=== PATIENT | female | born 1985 | race Hispanic/Latino ===

== ENCOUNTER 2020-09-25 05:26 | Observation (INO) | payer OTHER, SELFPAY ==
[2020-09-25 06:07] LABS: Bilirubin Negative (Negative); Blood, Urine Small (Negative); Glucose, Urine (Dipstick) Negative (Negative); Ketone, Urine Negative (Negative); Leukocyte Negative (Negative); Nitrite Negative (Negative); Protein, Urine (Dipstick) Negative (Neg-Trace); Urobilinogen 0.2 mg/dL (Less than 2)
[2020-09-25 06:09] LABS: Clarity Clear (Clear); RBC/HPF None Seen HPF (0-3); Specific Gravity, Urine 1.004 (1.002-1.036)
[2020-09-25 06:19] LABS: #Eosinphils 0.1 thou/uL (0.0-0.7); #Lymphocytes 1.3 thou/uL (1.20-3.40); #Monocytes 0.5 thou/uL (0.11-0.59); #Neutrophils 11.7 thou/uL (1.40-6.50); %Basophils 0.1 % (0.0-1.0); %Eosinophils 0.8 % (0.0-10.0); %Lymphocytes 9.7 % (21.0-51.0); %Monocytes 3.9 % (0.0-10.0); %Neutrophils 85.5 % (42.0-75.0); Hemoglobin 8.2 g/dL (12.0-16.0); Hypochromia SLIGHT = 6-15 cells (100X) (0-5/hpf); MDiff Complete? YES; Mean Corpuscular HGB CONC 30.5 g/dL (32.0-36.0); Mean Corpuscular Hemoglobin 19.1 pg (27.0-31.0); Mean Corpuscular Volume 62.7 fL (78.0-98.0); Mean Platelet Volume 10.9 fL (7.4-10.4); Microcytosis MARKED = >30 cells (100X) (0-5/hpf); Ovalocytes SLIGHT = 2-5 cells (100X) (0-1/hpf); Platelet Count 403 thou/uL (130-400); Platelet Morphology Comment Appears Adequate; RBC Distribution Width 17.8 % (11.5-14.5); Reflex for Review?? YES; White Blood Cell (WBC) Count 13.7 thou/uL (4.8-10.8)
[2020-09-25 06:34] LABS: ALT (SGPT) 17 U/L (8-55); AST (SGOT) 29 U/L (5-34); Albumin 4.6 g/dL (3.5-5.0); Alcohol 200 mg/dL (Less than 10); Alkaline Phosphatase 52 U/L (40-110); Anion Gap 16 mmol/L (10-20); BUN (Urea Nitrogen) 14 mg/dL (7.0-18.7); Bilirubin, Total 0.3 mg/dL (0.2-1.2); Calc. Creatinine Clearance 0 mL/min (70-130); Calcium 8.8 mg/dL (7.8-10.44); Carbon Dioxide 21 mmol/L (22-29); Chloride 106 mmol/L (98-107); Globulin 3.7 g/dL (2.4-3.5); Glucose 109 mg/dL (70-105); Potassium 3.4 mmol/L (3.5-5.1); Protein, Total 8.3 g/dL (6.0-8.3); Sodium 140 mmol/L (136-145)
[2020-09-25] MEDS ORDERED: Boostrix 0.5 ML (Tdap) VIAL ONE (06:35)
[2020-09-25 07:44] LABS: BHCG - Serum Negative (NEGATIVE); Pregs Control Background? CLEAR/WHITE (CLR/WHITE); Pregs Control Bar Appear? YES (CONTROL BAR)
[2020-09-25] MEDS ORDERED: Dextrose 5% in Water 1,000 ML IV PRN (07:46)
[2020-09-25] MEDS ORDERED: traMADol HCl 50 MG TAB PO PRN (07:46)
[2020-09-25] MEDS ORDERED: Dextrose 50% Abboject 50 ML SYRINGE SLOW IVP PRN (07:46)
[2020-09-25] MEDS ORDERED: Ondansetron ODT 4 MG TAB PO PRN (07:46)
[2020-09-25] MEDS ORDERED: Ondansetron PF 4 MG/2 ML Vial IVP PRN (07:46)
[2020-09-25 10:22] VITALS: BMI 23.0
[2020-09-25] MEDS ORDERED: Silver Sulfadiazine 50 GM TUBE TOP SCH (10:30)
[2020-09-25] MEDS: Sodium Chloride 0.9% 1,000 ML IV SCH ×2 (11:17→17:46)
[2020-09-25] MEDS: Famotidine 20 MG TAB PO SCH ×2 (11:17→20:58)
[2020-09-25] MEDS: Acetaminophen 500 MG TAB PO SCH ×2 (11:18→17:44)
[2020-09-25] MEDS: traMADol HCl 50 MG TAB PO PRN ×2 (11:19→21:09)
[2020-09-25] MEDS: Cyclobenzaprine 10 MG TAB PO PRN ×2 (11:19→21:09)
[2020-09-25 12:15] LABS: Hemoglobin 7.1 g/dL (12.0-16.0); Mean Corpuscular Hemoglobin 19.8 pg (27.0-31.0); Mean Corpuscular Volume 63.6 fL (78.0-98.0); RBC Distribution Width 17.7 % (11.5-14.5)
[2020-09-25 12:27] LABS: #Monocytes 0.8 thou/uL (0.11-0.59); #Neutrophils 9.4 thou/uL (1.40-6.50); %Basophils 0.1 % (0.0-1.0); %Eosinophils 0.3 % (0.0-10.0); %Lymphocytes 8.7 % (21.0-51.0); %Monocytes 6.9 % (0.0-10.0); Anisocytosis SLIGHT = 6-15 cells (100X) (0-5/hpf); Hypochromia MODERATE=16-30 cells (100X) (0-5/hpf); MDiff Complete? YES; Mean Platelet Volume 10.1 fL (7.4-10.4); Microcytosis SLIGHT = 6-15 cells (100X) (0-5/hpf); Platelet Count 298 thou/uL (130-400); Platelet Morphology Comment Appears Adequate; Polychromasia SLIGHT = 2-3 cells (100X) (0-2/hpf); Small Platelets SLIGHT; White Blood Cell (WBC) Count 11.2 thou/uL (4.8-10.8)
[2020-09-25 12:58] LABS: SARS-CoV-2 NAA Rapid Test Not Detected (NotDetected)
[2020-09-25] MEDS: Ibuprofen 800 MG TAB PO SCH ×2 (14:02→21:10)
[2020-09-25] MEDS ORDERED: Iopamidol-370 76% 500 ML 1 ML ONE (15:14)
[2020-09-25 18:10] LABS: Hemoglobin 6.7 g/dL (12.0-16.0)
[2020-09-25] MEDS: Ascorbic Acid 500 mg Chewable Tablet PO SCH (20:58)
[2020-09-25] MEDS: Silver Sulfadiazine 50 GM TUBE TOP SCH (21:12)
[2020-09-26 00:07] LABS: Hemoglobin 6.5 g/dL (12.0-16.0)
[2020-09-26] MEDS: Acetaminophen 500 MG TAB PO SCH ×4 (00:14→18:50)
[2020-09-26] MEDS: Ibuprofen 800 MG TAB PO SCH ×3 (05:53→21:40)
[2020-09-26 05:55] LABS: #Eosinphils 0.1 thou/uL (0.0-0.7); #Lymphocytes 1.5 thou/uL (1.20-3.40); #Monocytes 0.4 thou/uL (0.11-0.59); #Neutrophils 3.5 thou/uL (1.40-6.50); %Basophils 0.5 % (0.0-1.0); %Eosinophils 2.6 % (0.0-10.0); %Lymphocytes 27.3 % (21.0-51.0); %Monocytes 7.4 % (0.0-10.0); %Neutrophils 62.2 % (42.0-75.0); Hemoglobin 6.6 g/dL (12.0-16.0); Mean Corpuscular HGB CONC 30.3 g/dL (32.0-36.0); Mean Corpuscular Hemoglobin 19.7 pg (27.0-31.0); Mean Platelet Volume 10.5 fL (7.4-10.4); Platelet Count 254 thou/uL (130-400); RBC Distribution Width 17.7 % (11.5-14.5); Red Blood Cell (RBC) Count 3.33 mill/uL (4.20-5.40); White Blood Cell (WBC) Count 5.6 thou/uL (4.8-10.8)
[2020-09-26 06:16] LABS: Phosphorus 2.7 mg/dL (2.3-4.7)
[2020-09-26 06:17] LABS: Anion Gap 11 mmol/L (10-20); BUN (Urea Nitrogen) 8 mg/dL (7.0-18.7); Calc. Creatinine Clearance 135 mL/min (70-130); Calcium 7.8 mg/dL (7.8-10.44); Carbon Dioxide 22 mmol/L (22-29); Chloride 108 mmol/L (98-107); Glucose 95 mg/dL (70-105); Magnesium 2.1 mg/dL (1.6-2.6); Potassium 3.5 mmol/L (3.5-5.1); Sodium 137 mmol/L (136-145)
[2020-09-26] MEDS ORDERED: Ferrous Sulfate 325 MG TAB PO SCH (08:00)
[2020-09-26] MEDS: Ascorbic Acid 500 mg Chewable Tablet PO SCH ×2 (09:00→21:41)
[2020-09-26] MEDS: Ferrous Sulfate 325 MG TAB PO SCH ×2 (09:01→21:41)
[2020-09-26] MEDS: Famotidine 20 MG TAB PO SCH ×2 (09:01→21:41)
[2020-09-26] MEDS: Silver Sulfadiazine 50 GM TUBE TOP SCH ×2 (09:01→21:42)
[2020-09-26 15:35] LABS: Iron 45 ug/dL (50-170); Iron Binding Capacity, Total 481 mcg/dL (265-497); Transferrin, Serum 385 mg/dL (180-382)
[2020-09-26 15:59] LABS: #Eosinphils 0.1 thou/uL (0.0-0.7); #Lymphocytes 1.1 thou/uL (1.20-3.40); #Monocytes 0.5 thou/uL (0.11-0.59); #Neutrophils 7.6 thou/uL (1.40-6.50); %Basophils 0.2 % (0.0-1.0); %Lymphocytes 12.3 % (21.0-51.0); %Monocytes 4.9 % (0.0-10.0); %Neutrophils 81.6 % (42.0-75.0); Hemoglobin 7.5 g/dL (12.0-16.0); Mean Corpuscular Hemoglobin 19.4 pg (27.0-31.0); Mean Corpuscular Volume 64.8 fL (78.0-98.0); Mean Platelet Volume 10.7 fL (7.4-10.4); Platelet Count 340 thou/uL (130-400); RBC Distribution Width 18.4 % (11.5-14.5); Red Blood Cell (RBC) Count 3.86 mill/uL (4.20-5.40); White Blood Cell (WBC) Count 9.3 thou/uL (4.8-10.8)
[2020-09-26 16:04] LABS: Anisocytosis SLIGHT = 6-15 cells (100X) (0-5/hpf); Hypochromia SLIGHT = 6-15 cells (100X) (0-5/hpf); MDiff Complete? YES; Microcytosis SLIGHT = 6-15 cells (100X) (0-5/hpf); Ovalocytes SLIGHT = 2-5 cells (100X) (0-1/hpf); Platelet Morphology Comment Appears Adequate; Polychromasia SLIGHT = 2-3 cells (100X) (0-2/hpf)
[2020-09-26 20:06] VITALS: BP 107/65; TEMP 98.8
== END 2020-09-26 22:50 | disposition home or self-care (01) ==
LOC: ERS 05:26 → SJJU 07:46
PROVIDERS: ADMIT Surgery; ATTEND Surgery
DX: S20.412A Abrasion of left back wall of thorax, initial encounter (principal); S30.811A Abrasion of abdominal wall, initial encounter; S70.212A Abrasion, left hip, initial encounter; S63.602A Unspecified sprain of left thumb, initial encounter; D50.9 Iron deficiency anemia, unspecified; F10.129 Alcohol abuse with intoxication, unspecified; J33.8 Other polyp of sinus; N26.1 Atrophy of kidney (terminal); Z20.822 Contact with and (suspected) exposure to COVID-19; V49.88XA Car occupant (driver) (passenger) injured in other specified transport accidents, initial encounter; Y90.7 Blood alcohol level of 200-239 mg/100 ml
CPT/HCPCS: 26600; 36415; 36416; 70450; 71260; 72125; 74177; 80048; 80053; 80307; 81003; 81015; 82728; 83540; 83550; 83690; 83735; 84100; 84466; 84703; 85025; 85060; 90471; 90715; G0378; Q9967; U0002; U0005